=== PATIENT | male | born 1945 | race Asian ===

== ENCOUNTER 2021-09-12 06:37 | Day surgery (SDC) | payer MEDICARE, OTHER ==
[~2021-09-12] VITALS: Ht 170.2 cm; Wt 68.2 kg
[~2021-09-12 06:37] MED LIST: SODIUM CHLORIDE 0.9% 1,000 ML IV ONE
[2021-09-12 06:53] LABS: COVID AG,FIA SOURCE NASOPHARYNGEAL
[2021-09-12] MEDS ORDERED: SODIUM CHLORIDE 0.9% 1,000 ML ONE (07:12)
[2021-09-12] MEDS ORDERED: METF-81 PO (07:24)
[2021-09-12] MEDS ORDERED: GLIP5TAB12 PO (07:25)
[2021-09-12] MEDS ORDERED: ROSU10TA72 PO (07:25)
[2021-09-12] MEDS ORDERED: MONT-35 PO (07:28)
[2021-09-12] MEDS ORDERED: PRED-549 PO (07:29)
[2021-09-12] MEDS ORDERED: GABA-1216 PO (07:30)
[2021-09-12] MEDS ORDERED: ASPI-1227 PO (07:30)
[2021-09-12] MEDS ORDERED: BACL10TA PO (07:32)
[2021-09-12] MEDS ORDERED: ESCI-8 PO (07:32)
[2021-09-12] MEDS ORDERED: ACET-3385 PO (07:34)
[2021-09-12] MEDS ORDERED: MIDAZOLAM HCL 5 MG/ML VIAL ONE (08:22)
[2021-09-12] MEDS ORDERED: FentaNYL CITRATE PF 100 MCG/2 ML VIAL ONE (08:22)
[2021-09-12] MEDS ORDERED: SODIUM CHLORIDE 0.9% 10 ML ONE (08:26)
[2021-09-12 09:21] LABS: GLUCOMETER DEV NAME(LOC) SDS.; GLUCOSE,POINT OF CARE 138 MG/DL (70-110)
[2021-09-12] MEDS ORDERED: MethylPREDNISolone SOD SUCC 125 MG/2 ML VIAL IVP ONE (09:45)
[2021-09-12] MEDS ORDERED: MethylPREDNISolone SOD SUCC 125 MG/2 ML VIAL ONE (10:07)
[2021-09-12] MEDS ORDERED: LIDOCAINE 4% 50 ML SOLUTION ONE (17:51)
[2021-09-12] MEDS ORDERED: ALBUTEROL SULFATE 2.5 MG/0.5 ML NEB SOLUTION NEB ONE (17:51)
[2021-09-12] MEDS ORDERED: BENZOCAINE 20% 50 MCG/SPRAY 57 GM ONE (17:51)
[2021-09-12] MEDS ORDERED: LIDOCAINE 2% 11 ML JELLY ONE (17:51)
[2021-09-12] MEDS ORDERED: LEVALBUTEROL HCL 1.25 MG/0.5 ML NEB SOLUTION NEB ONE (17:51)
[2021-09-12] MEDS ORDERED: OXYGEN THERAPY IH SCH (20:00)
== END 2021-09-12 11:35 | disposition home or self-care (01) ==
LOC: SURGERY 06:37
PROVIDERS: ATTEND Internal Medicine Critical Care Medicine
DX: J38.4 Edema of larynx (principal); B37.0 Candidal stomatitis; F17.210 Nicotine dependence, cigarettes, uncomplicated; J44.9 Chronic obstructive pulmonary disease, unspecified; Z72.89 Other problems related to lifestyle; E78.00 Pure hypercholesterolemia, unspecified; Z79.82 Long term (current) use of aspirin; Z98.890 Other specified postprocedural states; Z79.899 Other long term (current) drug therapy
CPT/HCPCS: 31623; 88112; 82962; 87206; 87101; 87220; 87070; 87015; 88305; 88312; 31624; 71045; 87426; J3010; J2930; J2250; Q9967; J7030; C9803; J7613; Z7610

== ENCOUNTER 2024-07-26 06:11 | Day surgery (SDC) | payer MEDICARE, OTHER ==
[~2024-07-26] VITALS: Ht 175.3 cm; Wt 65.9 kg
[~2024-07-26 06:11] MED LIST changes: +ACET-3385 PO; +ASPI-1227 PO; +GABA-1216 PO; +GLIP5TAB16 PO; +METF-81 PO; +MONT-35 PO; +OMEP20CA12 PO; +PRED-549 PO; +ROSU10TA72 PO; -SODIUM CHLORIDE 0.9% 1,000 ML IV ONE
[2024-07-26] MEDS ORDERED: SODIUM CHLORIDE 0.9% 1,000 ML ONE (06:41)
[2024-07-26] MEDS: SODIUM CHLORIDE 0.9% 1,000 ML IV ONE (07:32)
[2024-07-26 07:46] LABS: GLUCOMETER DEV NAME(LOC) SDS.; GLUCOSE,POINT OF CARE 111 MG/DL (70-110)
[2024-07-26] MEDS ORDERED: FentaNYL CITRATE PF 100 MCG/2 ML VIAL ONE (08:13)
[2024-07-26] MEDS ORDERED: MIDAZOLAM HCL 2 MG/2 ML VIAL ONE (08:13)
[2024-07-26 09:02] VITALS: PULSE 71; RESP 16; O2SAT 100
[2024-07-26] MEDS ORDERED: MethylPREDNISolone SOD SUCC 125 MG/2 ML VIAL ONE (09:58)
[2024-07-26] MEDS: MethylPREDNISolone SOD SUCC 125 MG/2 ML VIAL IVP ONE (10:03)
[2024-07-26] MEDS ORDERED: LIDOCAINE 4% 50 ML SOLUTION ONE (12:00)
[2024-07-26] MEDS ORDERED: ALBUTEROL SULFATE 2.5 MG/0.5 ML NEB SOLUTION NEB ONE (12:00)
[2024-07-26] MEDS ORDERED: BENZOCAINE 20% 50 MCG/SPRAY 57 GM ONE (12:00)
[2024-07-26] MEDS ORDERED: LIDOCAINE 2% 11 ML JELLY ONE (12:00)
== END 2024-07-26 12:30 | disposition home or self-care (01) ==
LOC: SURGERY 06:11
PROVIDERS: ATTEND Internal Medicine Critical Care Medicine
DX: R05.3 Chronic cough (principal); R04.2 Hemoptysis; J38.4 Edema of larynx; B37.0 Candidal stomatitis; J44.9 Chronic obstructive pulmonary disease, unspecified; Z98.890 Other specified postprocedural states; Z79.899 Other long term (current) drug therapy
CPT/HCPCS: 31623; 82962; 87206; 87101; 87220; 87070; 88108; 31624; 71045; 87015; J3010; J2250; J2919; J7030; J7613; Z7610